=== PATIENT | female | born 1950 | race Caucasian/White ===

== ENCOUNTER 2017-01-04 13:03 | Emergency (ER) | payer MEDICARE ==
[~2017-01-04 13:03] MED LIST: ACTOS45 MG PO; ALBUTEROL SULF8.5 GM IH; ALBUTEROL17 GM INH; APIDRA100 U/M SQ; ASPIRIN EC81 MG PO; ASPIRIN81 MG PO; BACTRIM DS TAB1 EAC2 PO; BACTRIM DS TABL1 TAB PO; BENTYL10 MG PO; BYSTOLIC5 MG; CALCIUM; CLINDAMYCIN HC300 M2 PO; HUMULIN-R100 UNITS/ SQ; IBUPROFEN800 MG; LACRI-LUBE S.O3.5 G1 OP; LANTUS100 U/ML SC; LANTUS100 UNITS/ SC; LASIX40 MG PO; LISINOPRIL20 MG; LOMOTIL TABLET1 TAB PO; LORTAB 10/500 T1 TAB PO; LORTAB 5/500 TA1 TAB PO; MOBIC15 MG; MOTRIN800 MG PO; NORCO 5-325 TA1 EACH PO; NORCO 5/325 TAB1 TAB PO; NORVASC5 MG PO; NOVOLOG100 UNITS/ SC; PERCOCET 5-3251 EACH PO; PERCOCET 5/3251 TAB; PERCOCET 5/3251 TAB PO; PRINIVIL20 M1 PO; PROTONIX40 MG PO; PROVENTIL HFA6.7 G1 IH; QUESTRAN PACKET4 GM PO; VALTREX500 M1 PO; VALTREX500 MG PO; VITAMIN C; VITAMIN C PO; VITAMIN D; VITAMIN D1000 UNI1 PO; VITAMIN K; XANAX; XANAX1 MG PO; ZOLOFT50 MG
[2017-01-04 13:54] LABS: EOS % 2.4 % (0-7); EOSINOPHIL ABSOLUTE COUNT 0.1 tho/cmm (0.0-0.7); HCT-HEMATOCRIT 41.7 % (34.0-49.0); HGB-HEMOGLOBIN 14.3 gm/dl (12.0-15.5); KETONE-BETA (WHOLE BLOOD) <0.1 mmol/L (0.0-0.6); LYMPH % 20.5 % (20-45); LYMPH ABSOLUTE COUNT 0.5 tho/cmm (0.8-4.5); MCH (MEAN CORPUSCULAR HGB) 29.9 pg (28.0-32.0); MCHC MEAN CORPUSCULAR HGB CONC 34.3 % (32.0-36.0); MCV (MEAN CELL VOLUME) 87.1 fl (82.0-96.0); MEAN PLATELET VOLUME 11.3 cmc (9.4-12.4); MONO % 6.8 % (0-12); MONOCYTE ABSOLUTE COUNT 0.2 tho/cmm (0.0-1.2); NEUTROPHIL ABSOLUTE COUNT 1.8 tho/cmm (1.6-8.0); NEUTROPHIL-AUTOMATED 1.8 tho/cmm (1.6-8.0); NEUTROPHILS % 70.3 % (40-80); RED BLOOD COUNT 4.79 mil/cmm (4.00-5.20); RED CELL DISTRIBUTION WIDTH 13.1 % (12.4-16.4); WHITE BLOOD COUNT 2.5 tho/cmm (4.0-10.0)
[2017-01-04 14:08] LABS: ANION GAP 11 mmol/L (0-20); BLOOD UREA NITROGEN 16 mg/dl (6-24); CALCIUM 9.2 mg/dl (8.5-10.5); CARBON DIOXIDE-VENOUS 27 mmol/L (22-32); CHLORIDE 98 mmol/l (96-110); CREATININE 1.03 mg/dl (0.50-1.10); POTASSIUM 4.4 mmol/L (3.7-5.1); SODIUM 132 mmol/L (135-145); eGFR VALUE FOR BLACK 66 mL/Min
[2017-01-04 14:12] LABS: GLUCOSE 604 mg/dL (70-110)
[2017-01-04 14:19] LABS: PLATELET COUNT 69 tho/cmm (150-450)
[2017-01-04] MEDS ORDERED: GLUCOPHAGE XR500 M1 PO (14:24)
[2017-01-04] MEDS ORDERED: NORCO 5-325 TA1 EACH PO (14:50)
[2017-01-04] MEDS ORDERED: PRINIVIL20 M1 PO (14:50)
[2017-04-11] MEDS ORDERED: NORCO 5-325 TA1 EACH PO (13:02)
[2017-04-11] MEDS ORDERED: GLUCOPHAGE500 M3 PO (13:04)
[2017-04-11] MEDS ORDERED: NOVOLOG100 UNITS/ SC (13:06)
[2017-04-11] MEDS ORDERED: SULFAMYLON TOP (13:09)
[2017-04-11] MEDS ORDERED: CLINDAMYCIN HC300 M2 PO (13:11)
[2017-04-11] MEDS ORDERED: CLONIDINE HCL0.1 M2 PO (13:26)
== END 2017-01-04 15:40 ==
LOC: EDMED 13:03
PROVIDERS: Physician Assistant
DX: M54.5 Low back pain (principal); I10 Essential (primary) hypertension; D47.3 Essential (hemorrhagic) thrombocythemia; R73.9 Hyperglycemia, unspecified

== ENCOUNTER 2017-03-08 23:01 | Emergency (ER) | payer MEDICARE ==
[~2017-03-08 23:01] MED LIST changes: +GLUCOPHAGE XR500 M1 PO
[2017-03-09] MEDS ORDERED: NORCO 5/3251 TAB PO (00:08)
[2017-04-11] MEDS ORDERED: NORCO 5-325 TA1 EACH PO (13:02)
[2017-04-11] MEDS ORDERED: GLUCOPHAGE500 M3 PO (13:04)
[2017-04-11] MEDS ORDERED: NOVOLOG100 UNITS/ SC (13:06)
[2017-04-11] MEDS ORDERED: SULFAMYLON TOP (13:09)
[2017-04-11] MEDS ORDERED: CLINDAMYCIN HC300 M2 PO (13:11)
[2017-04-11] MEDS ORDERED: CLONIDINE HCL0.1 M2 PO (13:26)
== END 2017-03-09 00:20 ==
LOC: EDMED 23:01
DX: M54.32 Sciatica, left side (principal); E11.9 Type 2 diabetes mellitus without complications; I10 Essential (primary) hypertension; Z88.2 Allergy status to sulfonamides; Z87.891 Personal history of nicotine dependence; Z79.4 Long term (current) use of insulin; Z79.82 Long term (current) use of aspirin; Z79.899 Other long term (current) drug therapy